=== PATIENT | female | born 1955 | race Caucasian/White ===

== ENCOUNTER → 2017-04-04 12:54 | Outpatient (CLI) | payer MEDICARE, MEDICAID ==
[2014-02-17 00:52] VITALS: BMI 27.1
[~2017-04-04 12:54] MED LIST: ACCOLATE10 MG PO; ACCUPRIL10 MG PO; ADVAIR 250/501 DISK INH; CLARINEX2.5 MG/5 M PO; CRESTOR10 MG PO; DESERYL100 MG PO; FLOVENT HFA 410.6 GM INH; MUCINEX600 MG PO; PRILOSEC20 MG PO; PROVENTIL HFA6.7 GM INH; SKELAXIN800 MG PO; STERAPRED DS 1210 MG PO; TESSALON PERLE100 MG PO; TOPROL XL25 MG PO; ULTRAM50 MG PO; ZYPREXA10 MG PO
== END | disposition home or self-care (01) ==
LOC: D.US 12:54 → D.ECHO 04-05 13:00 → D.US 04-05 13:00
DX: M79.604 Pain in right leg (principal)

== ENCOUNTER 2018-01-24 19:00 | Outpatient (CLI) | payer MEDICARE, MEDICAID ==
[2014-02-17 00:52] VITALS: BMI 27.1
== END 2018-01-24 20:00 | disposition home or self-care (01) ==
LOC: D.MAMMO 19:00
DX: Z12.31 Encounter for screening mammogram for malignant neoplasm of breast (principal)

== ENCOUNTER → 2018-03-05 22:28 | Outpatient (CLI) | payer MEDICARE, MEDICAID ==
[2014-02-17 00:52] VITALS: BMI 27.1
== END | disposition home or self-care (01) ==
LOC: D.MAMMO 14:30
DX: R92.8 Other abnormal and inconclusive findings on diagnostic imaging of breast (principal)